=== PATIENT | male | born 1995 | race Caucasian/White ===

== ENCOUNTER 2019-01-16 21:53 | Emergency (ER) | payer SELFPAY ==
--- NOTE | 2019-01-17 01:11 | RADIOLOGY REPORT (SQ) ---
CLINICAL HISTORY: EVAL FOR ABSCESS COMPARISON: None. TECHNIQUE: US SCROTUM on 01/17/2019 12:08 AM CDT FINDINGS: Right testicle measures 3.8 x 2.2 x 3.1 cm and is normal in echotexture with patent flow. The right epididymis measures 1.5 cm. Left testicle measures 4.1 x 2.2 x 3.4 cm and is normal in echotexture with patent flow. The left epididymis measures 1.5 cm containing a 4 mm cyst. IMPRESSION: No evidence of mass, torsion or abscess.
--- NOTE | 2019-01-17 01:20 | ER Document Report ---
HPI - HPI Time Seen by Provider: 01/16/19 23:52 Pain Level: 2 Notes: Patient is an otherwise healthy 23-year-old male who presents to the emergency department with initial complaint of possible yeast infection or UTI. Patient reports over the last 2 months he has been having pain to the scrotal area that is intermittent. He denies any concern for STD, denies any drainage from the area. He denies any dysuria or urinary frequency. Past Medical History - General Information source: Patient - Social History Smoking Status: Current Every Day Smoker Frequency of alcohol use: None Drug Abuse: None Family History: Reviewed & Not Pertinent - Medical History Medical History: Negative Surgical Hx: Negative - Immunizations Immunizations up to date: Yes Hx Diphtheria, Pertussis, Tetanus Vaccination: Yes Vertical Provider Document - CONSTITUTIONAL Notes: PHYSICAL EXAMINATION: GENERAL: Well-appearing, well-nourished and in no acute distress. HEAD: Atraumatic, normocephalic. EYES: Pupils equal round extraocular movements intact, conjunctiva are normal. ENT: Nares patent NECK: Normal range of motion LUNGS: No respiratory distress Musculoskeletal: Normal range of motion Male genitourinary: No scrotal swelling or erythema noted. Small nodules noted to lateral aspect of bilateral scrotum, increased on the left. NEUROLOGICAL: Normal speech, normal gait. PSYCH: Normal mood, normal affect. SKIN: Warm, Dry, normal turgor, no rashes or lesions noted. - INFECTION CONTROL TRAVEL OUTSIDE OF THE [place] IN LAST 30 DAYS: No Course - Re-evaluation Re-evalutation: Dr. Penny came to the bedside to evaluate the patient with me. The patient does have two areas of concern one on each side of the scrotum/groin area. This does not appear to be a drainable abscess however we will send him for a scrotal ultrasound. Patient continues to state he does not have concern for STDs, does not want prophylactic treatment for them. Patient states that he wants antibiotics for the swelling in his scrotum. Scrotal ultrasound is negative. Patient now reports that he does shave his groin, states that he feels it may be a ingrown hair. I will place patient on doxycycline for possible skin infection/cellulitis. Nursing staff did send down a urine for GC and chlamydia. Patient not treated prophylactically, patient will call in 1-2 days for the results. - Vital Signs Vital signs: Temp Pulse Resp BP Pulse Ox 97.9 F 106 H 18 161/98 H 97 01/16/19 22:16 01/16/19 22:16 01/16/19 22:16 01/16/19 22:16 01/16/19 22:16 Discharge - Discharge Clinical Impression: Skin infection, Ingrown hair Condition: Stable Disposition: HOME, SELF-CARE Additional Instructions: Please take antibiotics as prescribed. Call tomorrow or Friday for results of your chlamydia and gonorrhea testing. You were not treated for these today as you have opted to not be treated ahead of time. I work Friday 2 PM to 2 AM, you can call here and ask for me AT [phone] to get the results if they will not give them to over the phone tomorrow. Prescriptions: Doxycycline Hyclate [Vibramycin] 100 mg PO BID #14 capsule Forms: Special Work Note
[2019-01-17 02:49] VITALS: BP 159/82
== END 2019-01-17 01:51 | disposition home or self-care (01) ==
LOC: ER 21:53
DX: L08.9 Local infection of the skin and subcutaneous tissue, unspecified (principal); L73.1 Pseudofolliculitis barbae; N50.82 Scrotal pain; F17.200 Nicotine dependence, unspecified, uncomplicated
CPT/HCPCS: 76870; 93976; 99283

== ENCOUNTER 2019-10-15 14:40 | Emergency (ER) | payer SELFPAY ==
--- NOTE | 2019-10-15 16:05 | ER Document Report ---
HPI - HPI Patient complains to provider of: Concern about STD Time Seen by Provider: 10/15/19 16:02 Onset: This afternoon Pain Level: Denies Context: Patient states that his current partner received information that she may have been exposed to chlamydia. Patient denies any dysuria or penile discharge. Patient would like to be treated for chlamydia. Patient also complains of a chronic skin infection to the groin area and states that he has started to develop tenderness to the left groin area. Associated Symptoms: Other - Left groin tenderness. denies: Nausea, Vomiting Exacerbated by: Denies Relieved by: Denies Similar symptoms previously: Yes Recently seen / treated by doctor: No - ROS ROS below otherwise negative: Yes Systems Reviewed and Negative: Yes All other systems reviewed and negative - CONSTITUTIONAL Constitutional: DENIES: Fever, Chills - EENT EENT: DENIES: Sore Throat - NEURO Neurology: DENIES: Weakness - GASTROINTESTINAL Gastrointestinal: DENIES: Abdominal Pain, Nausea, Patient vomiting - URINARY Urinary: DENIES: Dysuria, Urgency, Frequency Notes: No penile discharge - MUSCULOSKELETAL Musculoskeletal: DENIES: Extremity pain - DERM Skin Color: Erythema - Left groin area Skin Problems: None Past Medical History - General Information source: Patient - Social History Smoking Status: Current Every Day Smoker Chew tobacco use (# tins/day): No Frequency of alcohol use: Rare Drug Abuse: None Occupation: None Lives with: Spouse/Significant other Family History: Reviewed & Not Pertinent Patient has suicidal ideation: No Patient has homicidal ideation: No - Medical History Medical History: Negative Renal/ Medical History: Denies: Hx Peritoneal Dialysis Past Surgical History: Reports: Hx Orthopedic Surgery - foot surgery - Immunizations Immunizations up to date: Yes Hx Diphtheria, Pertussis, Tetanus Vaccination: Yes Vertical Provider Document - CONSTITUTIONAL Agree With Documented VS: Yes Exam Limitations: No Limitations General Appearance: WD/WN, No Apparent Distress - INFECTION CONTROL TRAVEL OUTSIDE OF THE [place] IN LAST 30 DAYS: No - HEENT HEENT: Atraumatic, Normocephalic - NECK Neck: Normal Inspection, Supple - RESPIRATORY Respiratory: Breath Sounds Normal, No Respiratory Distress - CARDIOVASCULAR Cardiovascular: Regular Rate, Regular Rhythm - GI/ABDOMEN Gastrointestinal: Abdomen Soft, Abdomen Non-Tender - REPRODUCTIVE Notes: Patient with mild erythema to left inguinal area, no drainable abscess. Patient does have scarring and punctate skin lesion to left inguinal area - BACK Back: Normal Inspection. negative: CVA Tenderness-Right, CVA Tenderness-Left - MUSCULOSKELETAL/EXTREMETIES Musculoskeletal/Extremeties: MAEW - NEURO Level of Consciousness: Awake, Alert, Appropriate Motor/Sensory: No Motor Deficit - DERM Integumentary: Warm, Dry Course - Re-evaluation Re-evalutation: 10/15/19 16:22 Patient has skin lesions to the groin area suspicious for hidradenitis. Patient without any drainable abscess at this time. Will cover with doxycycline for both any potential follicular infection to the groin area as well as exposure to chlamydia. Discussed plan of care with patient. Patient verbalized understanding at this time. - Vital Signs Vital signs: Temp Pulse Resp BP Pulse Ox 98.5 F 85 19 151/73 H 94 10/15/19 16:02 10/15/19 14:56 10/15/19 16:02 10/15/19 14:56 10/15/19 16:02 Discharge - Discharge Clinical Impression: Exposure to chlamydia Condition: Stable Disposition: HOME, SELF-CARE Instructions: Chlamydia ([facility]), Doxycycline ([facility]) Additional Instructions: Return immediately for any new or worsening symptoms Followup with your primary care provider, call tomorrow to make a followup appointment You have skin changes in the groin area that looks suspicious for mild hidradenitis suppurativa, you should clean the skin in the area with a chlorhexidine skin cleanser that she can get [id number] Prescriptions: Doxycycline Hyclate 100 mg PO BID #20 capsule Forms: Smoking Cessation Education Referrals: [facility] [NO LOCAL MD] - Follow up as needed [facility] [Provider Group] - Follow up as needed
[2019-10-15] MEDS ORDERED: DOXYCYCLINE HYCLATE 100 MG TABLET PO ONE (16:20)
[2019-10-15 16:40] VITALS: BP 145/70
[2019-10-15 17:48] LABS: CHLAM PCR NOT DETECTED (NOT DETECT)
== END 2019-10-15 16:42 | disposition home or self-care (01) ==
LOC: ER 14:40
DX: Z20.2 Contact with and (suspected) exposure to infections with a predominantly sexual mode of transmission (principal); F17.200 Nicotine dependence, unspecified, uncomplicated
CPT/HCPCS: 87491; 87591; 99283

== ENCOUNTER 2019-12-15 01:30 | Emergency (ER) | payer SELFPAY ==
[2019-12-15] MEDS ORDERED: HALOPERIDOL LACTATE INJ 5 MG/1 ML VIAL IM ONE (01:33)
[2019-12-15] MEDS ORDERED: DIPHENHYDRAMINE HCL 50 MG/ML VIAL IM ONE (01:33)
[2019-12-15] MEDS ORDERED: LORAZEPAM INJ 2 MG/1 ML VIAL IM ONE (01:33)
--- NOTE | 2019-12-15 01:41 | ER Document Report ---
ED General - General Chief Complaint: Psych Problem Stated Complaint: IVC Time Seen by Provider: 12/15/19 01:39 Information source: Patient, Law Enforcement Cannot obtain history due to: Intoxicated, Uncooperative TRAVEL OUTSIDE OF THE [place] IN LAST 30 DAYS: No - HPI Onset: Other - unknown onset Onset/Duration: Waxing and waning Quality of pain: No pain Severity: Severe Pain Level: Denies Associated symptoms: None Exacerbated by: Other - provoking behavior Relieved by: Denies Similar symptoms previously: Yes - patient has a hisotry of alcohol abuse and anger management issues. Recently seen / treated by doctor: No Notes: 24 year old male with a history of alcohol abuse and anger management issues (this is according to a police worker who has been called to the patient's home multiple times) brought to the ER under IVC due aggressive behavior, extreme agitation and a concern of alcohol intoxication. The patient was yelling and scream on ER arrival and fighting with Security and Police personnel. Patient is not being cooperative, he is not answering questions, and he seems to be a harm others at this time. Patient has IVC papers which have been taken out on him by his brother. - Related Data Allergies/Adverse Reactions: cephalexin [From Keflex] Allergy (Verified 10/15/19 16:02) Past Medical History - General Information source: Law Enforcement Cannot obtain history due to: Intoxicated, Uncooperative - Social History Smoking Status: Unknown if Ever Smoked Frequency of alcohol use: Heavy Drug Abuse: Other - unknown Lives with: Family Family History: Reviewed & Not Pertinent Patient has suicidal ideation: No - unknown since wont answer Patient has homicidal ideation: No - unknown since wont answer Renal/ Medical History: Denies: Hx Peritoneal Dialysis Past Surgical History: Reports: Hx Orthopedic Surgery - foot surgery - Immunizations Immunizations up to date: Yes Hx Diphtheria, Pertussis, Tetanus Vaccination: Yes Review of Systems - Review of Systems -: Yes ROS unobtainable due to patient's medical condition - uncooperative, agitated, intoxicated Constitutional: Other - agitated and intoxicated -: Yes All other systems reviewed and negative Physical Exam - Notes Notes: GENERAL: Agitated and yelling. Uncooperative. Poorly groomed. HEAD: Atraumatic, normocephalic. EYES: Pupils equal round and reactive to light, extraocular movements intact, sclera anicteric, conjunctiva are normal. ENT: Nares patent, oropharynx clear without exudates. Moist mucous membranes. NECK: Normal range of motion, supple without lymphadenopathy or JVD. LUNGS: Breath sounds clear to auscultation bilaterally and equal. No wheezes rales or rhonchi. HEART: Regular rate and rhythm without murmurs, rubs or gallops. ABDOMEN: Soft, nontender, normoactive bowel sounds. No guarding, no rebound. No masses appreciated. EXTREMITIES: Normal range of motion, no pitting or edema. No clubbing or cyanosis. NEUROLOGICAL: No focal deficits. Normal speech, normal gait. PSYCH: Very agitated and acting aggressively here in the ER. SKIN: Warm, Dry, normal turgor, no rashes or lesions noted. Course - Re-evaluation Re-evalutation: 12/15/19 01:49 The patient required chemical sedation as soon as her got back to his ER room due to aggressive behavior and extreme agitation. The patient has IVC papers which were taken out on him by his brother. Patient given Haldol 5mg, Ativan 2mg, and Benadryl 50mg all IM. Patient will need the psych screening labs and a full re-evaluation in the morning including a psych evaluation. Patient will be signed out to the oncoming ER provider at shift change. Discharge - Discharge Clinical Impression: Agitation, Aggression Condition: Stable Disposition: PSYCH HOSP/UNIT
[2019-12-15] MEDS ORDERED: ZIPRASIDONE MESYLATE INJ/PF 20 MG SDV IM ONE (01:56)
[2019-12-15 02:41] LABS: APPEARANCE,URINE CLEAR; BILIRUBIN,URINE NEGATIVE (NEGATIVE); COLOR,URINE STRAW; GLUCOSE, URINE NEGATIVE (NEGATIVE); KETONES,URINE NEGATIVE (NEGATIVE); LEUKOCYTE ESTERASE,URINE NEGATIVE (NEGATIVE); NITRITE,URINE NEGATIVE (NEGATIVE); PROTEIN,URINE NEGATIVE (NEGATIVE); URINE SPECIFIC GRAVITY 1.002; UROBILINOGEN,URINE NEGATIVE mg/dL (<2.0)
[2019-12-15 02:55] LABS: URINE AMPHETAMINES SCREEN NEGATIVE; URINE BARBITURATES SCREEN NEGATIVE; URINE BENZODIAZEPINES SCREEN NEGATIVE; URINE COCAINE SCREEN NEGATIVE; URINE METHADONE SCREEN NEGATIVE; URINE PHENCYCLIDINE SCREEN NEGATIVE
[2019-12-15 02:56] LABS: URINE MARIJUANA (THC) SCREEN UNCONFIRMED POSITIVE
[2019-12-15 03:24] LABS: ABSOLUTE BASOPHILS # (AUTO) 0.1 10^3/uL (0.0-0.2); ABSOLUTE EOSINOPHILS # (AUTO) 0.2 10^3/uL (0.0-0.6); ABSOLUTE MONOCYTES (AUTO) 0.5 10^3/uL (0.1-1.4); BASOPHILS % (AUTO) 0.9 % (0-2); EOSINOPHILS % (AUTO) 2.2 % (0-6); HEMATOCRIT 49.3 % (37.9-51.0); HEMOGLOBIN 17.1 g/dL (13.5-17.0); LYMPHOCYTES % (AUTO) 40.9 % (13-45); MEAN CORPUSCULAR HEMOGLOBIN 30.5 pg (27.0-33.4); MEAN CORPUSCULAR HGB CONC 34.7 g/dL (32.0-36.0); MEAN CORPUSCULAR VOLUME 88 fl (80-97); MONOCYTES % (AUTO) 5.3 % (3-13); PLATELET COUNT 288 10^3/uL (150-450); RED CELL DISTRIBUTION WIDTH 13.4 % (11.5-14.0); SEGMENTED NEUTROPHILS % (AUTO) 50.7 % (42-78); TOTAL CELLS COUNTED % (AUTO) 100 %; WHITE BLOOD COUNT 9.8 10^3/uL (4.0-10.5)
[2019-12-15 03:49] LABS: ALBUMIN 4.5 g/dL (3.5-5.0); ALCOHOL 143 mg/dL (NONE DETECTED); ALKALINE PHOSPHATASE 75 U/L (38-126); ANION GAP 16 (5-19); ASPARTATE AMINO TRANSFERASE 32 U/L (17-59); BILIRUBIN,DIRECT 0.1 mg/dL (0.0-0.4); BILIRUBIN,TOTAL 0.4 mg/dL (0.2-1.3); BLOOD UREA NITROGEN 8 mg/dL (7-20); CARBON DIOXIDE 19 mmol/L (22-30); CHLORIDE 106 mmol/L (98-107); GLUCOSE 72 mg/dL (75-110); POTASSIUM 3.8 mmol/L (3.6-5.0); TOTAL PROTEIN 7.4 g/dL (6.3-8.2)
[2019-12-15 03:51] LABS: ACETAMINOPHEN < 10 ug/mL (10-30); SALICYLATE < 1.0 mg/dL (2.0-20.0)
--- NOTE | 2019-12-15 06:47 | ER Document Report ---
Doctor's Note Notes: 12/15/19 06:45 Patient was handed off to me at approximately 3:00 this morning. At that time he was being transitioned from bed 43 over to the main side to bed 1 for closer monitoring. Patient has been resting without event. Respirations equal and unlabored. He is on continuous pulse ox, heart rate has been between 101-110 bpm, respiratory rate of 16-18, pulse ox has been ranging 91 to 96%. He is on 2 L of oxygen.
--- NOTE | 2019-12-15 07:28 | EKG REPORT ---
SEVERITY:- OTHERWISE NORMAL ECG - SINUS TACHYCARDIA : Confirmed by: Wilfred Hitchcock MD 15-Dec-2019 07:27:22
--- NOTE | 2019-12-15 11:19 | PSYCHOLOGICAL NOTE ---
Psych Note - Psych Note Date seen by psych provider: 12/15/19 Time seen by psych provider: 09:35 Psych Note: Reason For Consult:IVC Consent Permissions: none provided Patient refuses to make eye contact and lays on the bed with his arms crossed behind his head. He reports he remembers everything and that he was "just mad" when he was brought in and denies being drunk. He reports he was depressed the other night and "drank a little too much." He confirms he has been suffering from depression "since I was 2 years old." He denies knowing triggers or having any understanding of his depression. Patient is alert and orientated to person, place, time and circumstance. Mood irritable with blunted affect. Patient discloses suicidal ideation however refuses to provide further details and attempts to deflect and minimize. He denies homicidal ideation. Delusions are absent and behaviors congruent with an intact reality based presentation ie organized and linear thought process. Thought content is guarded. Eye contact is poor and patient is noted to only look at the ceiling. Conversational speech is within normal rate, tone and prosody however it clearly communicates his irritability. Intellectual abilities appear to be within the average range. Attention and concentration are good. Insight, judgment, impulse control are fair. Medication recommendations per [facility]'s contracted psychiatrist Dr. Belgica RUSSELL are as follows Zyprexa 5mg twice daily Cogentin 1mg daily Impression\\plan:Patient is recommended for continued IVC. At this time the patient only minimally engages and uses minimization and deflection in an effort to guard thought content. Patient required four-point restraints due to his behaviours when he arrived to [facility]. Patient confirms he was "mad" but appears to not feel any concern about his behaviors. He reports he has suffered from depression most of his life but does not disclose further (significant thought content guarding). Patient was noted to have an ETOH of 143 upon arrival; however, patient disclosed that he felt he was not drunk. There is significant concern the patient has a substance abuse issue that increases his violence and reduces his impulse control. He engages in self harm and verbalizes thoughts of suicide with under the influence. Even when he is not under the influence, he is unwilling/unable to have insight into his drinking and behaviours and how they put him and others at risk. Placement can not begin until the patient has been out of restraints for 24 hours. Medication recommendations have been provided. Patient will be re-evaluated. Dr. Davidson was consulted to care management of this patient; attending physicians in agreement with recommendations and disposition.
--- NOTE | 2019-12-15 11:27 | ER Document Report ---
Doctor's Note Notes: 12/15/19 12:37 S: 24-year-old male in the emergency department due to acute alcohol intoxication, depression, aggressive and violent behavior. He was brought into the emergency department last night and actually had to be restrained because he was so combative and aggressive. He was also given Haldol and Benadryl. He has significantly calmed down this morning but still continues to not completely engage with the behavioral health team. He does admit to depression since he was 2 years old. He states that last night he got very mad and drink too much. He denies any SI, HI or hallucinations today. He request to go outside and smoke. O: Constitutional: Alert and oriented; in no acute distress Cardiac: Regular rate and rhythm, no murmurs, rubs, or gallops PULM: Clear to auscultation bilaterally, no wheezes, rhonchi or rales Abdomen: Soft, nondistended, nontender Psych: Withdrawn and irritable. He states that he wants outpatient care. He denies any SI or HI. He denies any hallucinations. He is minimally engaging. A/P: Discussed patient with our behavioral health team. They will continue the IVC order on the patient since he is not engaging and very irritable.'s concern over his violent behavior last night and his alcohol problem. We will continue to monitor patient closely. He is aware that we are continuing to evaluate and manage him. I have placed a nicotine patch order for him. Pending med recs from Behavioral Health team 12/15/19 12:42 Medication recommendations for Zyprexa 5 mg PO BID and Cogentine 1 mg QD.
[2019-12-15] MEDS ORDERED: NICOTINE 14 MG/24 HR PATCH.TD24 TD ONE (12:38)
[2019-12-15] MEDS: OLANZAPINE 5 MG TABLET PO SCH ×2 (13:14→18:08)
[2019-12-15] MEDS: BENZTROPINE MESYLATE 1 MG TABLET PO SCH (13:14)
[2019-12-16] MEDS ORDERED: MELATONIN 5 MG TABLET PO ONE (03:42)
[2019-12-16] MEDS: BENZTROPINE MESYLATE 1 MG TABLET PO SCH (09:50)
[2019-12-16] MEDS: OLANZAPINE 5 MG TABLET PO SCH (09:50)
--- NOTE | 2019-12-16 10:14 | ER Document Report ---
Doctor's Note Notes: 12/16/19 10:00 PHYSICAL EXAMINATION: GENERAL: Well-appearing and in no acute distress. HEAD: Atraumatic, normocephalic. EYES: sclera anicteric, conjunctiva are normal. ENT: nares patent. Moist mucous membranes. NECK: Normal range of motion, supple without lymphadenopathy LUNGS: CTAB and equal. No wheezes rales or rhonchi. HEART: Regular rate and rhythm without murmurs EXTREMITIES: Normal range of motion, no pitting edema. BACK:No CVA tenderness NEUROLOGICAL: Cranial nerves grossly intact. Normal speech. PSYCH: Normal mood, normal affect. SKIN: Warm, Dry, normal turgor, no rashes or lesions noted Patient resting on stretcher, denies complaints at this time. Patient respirations even unlabored. Patient has not been wearing oxygen for several hours although RN is uncertain when oxygen was removed during the security shift manager. Patient denies any difficulty breathing any shortness of breath or chest disco mfort. Patient denies any previous history of use of oxygen. Patient not hypoxic at this time and does not require any use of oxygen at this time. 12/16/19 10:16 Patient appears medically clear for discharge or transfer pending mental health evaluation. 12/16/19 11:29 Transport is brought here to take patient to [facility] facility at this time.
[2019-12-16 11:43] VITALS: BP 130/70
--- NOTE | 2019-12-16 11:56 | PSYCHOLOGICAL NOTE ---
Psych Note - Psych Note Date seen by psych provider: 12/16/19 Psych Note: Reason For Consult:IVC Consent Permissions: none provided Patient has been accepted to [facility] for continued treatment; transportation was requested. Medication recommendations per [facility]'s contracted psychiatrist Dr. Belgica RUSSELL are as follows Zyprexa 5mg twice daily Cogentin 1mg daily Impression\plan:Patient is recommended for continued IVC. Patient was just started on medications yesterday and needs continued stabilization. Patient was accepted to [facility] this morning and transportation was requested. Dr. Davidson was consulted to care management of this patient; attending physicians in agreement with recommendations and disposition.
== END 2019-12-16 11:43 ==
LOC: ER 01:30
DX: R45.1 Restlessness and agitation (principal); F91.1 Conduct disorder, childhood-onset type; Z88.3 Allergy status to other anti-infective agents; Z99.81 Dependence on supplemental oxygen
CPT/HCPCS: 93005; 36415; 80307 ×4; 85025; 80053; 81001; 93010; J1200; J1630; J2060; J3490; 96372; 99285